=== PATIENT | male | born 1955 | race Caucasian/White ===

== ENCOUNTER 2019-12-04 05:20 | Inpatient (IN) | payer OTHER ==
[~2019-12-04] VITALS: Ht 177.8 cm; Wt 93.0 kg
[2019-12-04] VITALS (7 sets, daily range): BP systolic 121–157; BP diastolic 75–90
[~2019-12-04 05:20] MED LIST: ASPI81TA45 PO; ATOR10TA9 PO; EMPA25TA PO; GLIM4TAB8 PO; LOSA50TA14 PO; METF500T17 PO; METO25TA35 PO; TICA90TA PO
--- NOTE | 2019-12-04 05:34 | NUR ---
EKG DONE IN TRIAGE.
--- NOTE | 2019-12-04 05:41 | NUR ---
Patient presents to ER c/o left side CP x2-3 days; worse today. He describes the pain as pulsating then sharp. Pain radiates up neck and down left arm. +nausea, +dizziness. No vomiting. Patient took Nitro at home with no relief. Patient is in NAD. Respirations even and unlabored.
[2019-12-04] MEDS ORDERED: NITR0.4T28 SL (05:46)
[2019-12-04] MEDS ORDERED: ATOR-2 PO (05:46)
[2019-12-04] MEDS ORDERED: ISOS10TA6 PO (05:46)
[2019-12-04] MEDS ORDERED: ASPIRIN 81 MG TABLET CHEW ONE (05:51)
[2019-12-04] MEDS ORDERED: MORPHINE SULFATE 4 MG/ML, 1ML ONE (05:51)
[2019-12-04] MEDS ORDERED: MORPHINE SULFATE 4 MG/ML, 1ML IVPush PRN (06:00)
[2019-12-04] MEDS ORDERED: SODIUM CHLORIDE FLUSH 10ML SYR IVF ONE (06:00)
[2019-12-04] MEDS ORDERED: ASPIRIN 81 MG TABLET CHEW PO ONE ×2 (06:00→06:30)
[2019-12-04 06:16] LABS: BASOPHILS # (AUTO) 0.04 x10^3/uL (0-0.1); BASOPHILS % (AUTO) 1 % (0-1); EOSINOPHILS # (AUTO) 0.25 x10^3/uL (0-0.4); EOSINOPHILS % (AUTO) 3 % (1-7); LYMPHOCYTES # (AUTO) 2.58 x10^3/uL (1-3.4); LYMPHOCYTES % (AUTO) 34 % (22-44); MD NO; MEAN CORPUSCULAR HEMOGLOBIN 25.4 pg (27.5-34.5); MEAN CORPUSCULAR HGB CONC 32.4 g/dL (33.2-36.2); MEAN CORPUSCULAR VOLUME 78.5 fL (81-97); MEAN PLATELET VOLUME 8.2 fL (7.4-10.4); MONOCYTES # (AUTO) 0.54 x10^3/uL (0.2-0.8); MONOCYTES % (AUTO) 7 % (2-9); NEUTROPHILS # (AUTO) 4.21 x10^3/uL (1.8-6.8); NEUTROPHILS % (AUTO) 55 % (42-75); PLATELET COUNT 223 x10^3/uL (130-400); RED BLOOD COUNT 6.24 x10^6/uL (4.38-5.82); RED CELL DISTRIBUTION WIDTH 13.7 % (9.4-14.8)
[2019-12-04 06:26] LABS: ALANINE AMINOTRANSFERASE 44 U/L (12-78); ALBUMIN 3.9 g/dL (3.4-5.0); ANION GAP 9 mmol/L (5-15); CALCIUM 9.6 mg/dL (8.5-10.1); CHLORIDE 103 mmol/L (98-107); CREATININE 0.94 mg/dL (0.7-1.3)
[2019-12-04 06:30] LABS: ALKALINE PHOSPHATASE 94 U/L (45-117); BILIRUBIN,TOTAL 0.6 mg/dL (0.2-1.0); TOTAL PROTEIN 7.5 g/dL (6.4-8.2); TROPONIN I < 0.015 ng/mL (0.000-0.045)
--- NOTE | 2019-12-04 06:44 | NUR ---
Patient pain decreased to a 2/10 which is tolerable for him.
[2019-12-04] MEDS ORDERED: ONDANSETRON 2MG/ML, 2ML IVPush PRN (07:30)
[2019-12-04] MEDS ORDERED: OXYcodone 5 MG/5 ML ORAL.SOL UDC PO PRN (07:30)
[2019-12-04] MEDS ORDERED: DEXTROSE 50%, 50ML SYRINGE IVPush PRN (07:30)
[2019-12-04] MEDS ORDERED: ACETAMINOPHEN 650 MG/20.3 ML UDC PO PRN (07:30)
[2019-12-04] MEDS ORDERED: ONDANSETRON 4 MG TABLET PO PRN (07:30)
[2019-12-04] MEDS ORDERED: DEXTROSE 4 GM TAB.CHEW PO PRN (07:30)
[2019-12-04] MEDS ORDERED: GLUCAGON 1 MG IM PRN (07:30)
[2019-12-04] MEDS ORDERED: ONDANSETRON ODT 4 MG PO PRN (07:30)
[2019-12-04] MEDS ORDERED: NITROGLYCERIN SINGLE TAB 0.4 MG SL PRN (07:30)
--- NOTE | 2019-12-04 07:40 | NUR ---
Report called to Kendra BAZAN on [employer] Floor ready for pt transport.
[2019-12-04] MEDS: TICAGRELOR 90 MG TABLET PO SCH ×2 (09:47→20:43)
[2019-12-04] MEDS: GLIMEPIRIDE 4 MG TABLET PO SCH (09:47)
[2019-12-04] MEDS: SODIUM CHLORIDE FLUSH 10ML SYR IVF SCH ×2 (09:47→20:45)
[2019-12-04] MEDS: POTASSIUM CHLORIDE 20 MEQ in SODIUM CHLORIDE 0.9% 1,000 ML IV SCH ×2 (09:47→20:43)
[2019-12-04] MEDS: INSULIN LISPRO 100 UNITS/ML, PEN SQ-INSULIN SCH ×3 (11:50→20:44)
[2019-12-04 13:24] LABS: TROPONIN I < 0.015 ng/mL (0.000-0.045)
--- NOTE | 2019-12-04 14:21 | NUR ---
REC: D/C Home when cleared by Addendum: 12/04/19 at 1421 by Josy FERNANDEZ Amended: Links added.
[2019-12-04] MEDS ORDERED: INSULIN LISPRO 100 UNIT/ML, 3ML VIAL SQ-INSULIN ONE (14:30)
[2019-12-04] MEDS: INSULIN GLARGINE 100 UNITS/ML, PEN SQ-INSULIN SCH (15:06)
[2019-12-04] MEDS: METOPROLOL TARTRATE 25 MG TAB PO SCH (17:56)
[2019-12-04 18:43] LABS: TROPONIN I < 0.015 ng/mL (0.000-0.045)
[2019-12-04] MEDS: ATORVASTATIN 80 MG TABLET PO SCH (20:43)
[2019-12-05] MEDS: CETIRIZINE 10 MG TABLET PO PRN ×2 (00:25→21:19)
[2019-12-05 00:26] VITALS: BP 124/81
[2019-12-05 04:06] VITALS: BP 101/65
[2019-12-05 04:44] LABS: CHOL/HDL RATIO 4.3; LDL/HDL RATIO 2.1 (0.5-3.0)
[2019-12-05] MEDS: POTASSIUM CHLORIDE 20 MEQ in SODIUM CHLORIDE 0.9% 1,000 ML IV SCH (05:58)
[2019-12-05] MEDS: METOPROLOL TARTRATE 25 MG TAB PO SCH ×2 (05:58→17:05)
[2019-12-05 07:03] VITALS: BP 114/69
[2019-12-05] MEDS: GLIMEPIRIDE 4 MG TABLET PO SCH (08:42)
[2019-12-05] MEDS: TICAGRELOR 90 MG TABLET PO SCH ×2 (08:42→21:20)
[2019-12-05] MEDS: ASPIRIN 81 MG TABLET CHEW PO/NG SCH (08:42)
[2019-12-05] MEDS: INSULIN GLARGINE 100 UNITS/ML, PEN SQ-INSULIN SCH (08:42)
[2019-12-05] MEDS: INSULIN LISPRO 100 UNITS/ML, PEN SQ-INSULIN SCH ×4 (08:45→21:20)
[2019-12-05] MEDS: SODIUM CHLORIDE FLUSH 10ML SYR IVF SCH ×2 (08:45→21:00)
[2019-12-05] MEDS ORDERED: REGADENOSON 0.4 MG/5 ML SYRINGE ONE (09:04)
[2019-12-05 13:04] VITALS: BP 145/84
[2019-12-05 17:07] VITALS: BP 143/81
[2019-12-05 18:50] VITALS: BP 133/83
[2019-12-05] MEDS: ATORVASTATIN 80 MG TABLET PO SCH (21:20)
[2019-12-06] MEDS: POTASSIUM CHLORIDE 20 MEQ in SODIUM CHLORIDE 0.9% 1,000 ML IV SCH ×3 (00:17→21:25)
[2019-12-06 00:43] VITALS: BP 146/84
[2019-12-06] MEDS: METOPROLOL TARTRATE 25 MG TAB PO SCH ×2 (05:34→17:04)
[2019-12-06 06:11] VITALS: BP 124/78
[2019-12-06] MEDS: INSULIN LISPRO 100 UNITS/ML, PEN SQ-INSULIN SCH ×4 (07:00→20:54)
[2019-12-06] MEDS ORDERED: [UNRECOGNIZED DRUG - REMARK] MC SCH (08:30)
[2019-12-06] MEDS: TICAGRELOR 90 MG TABLET PO SCH ×2 (08:42→20:38)
[2019-12-06] MEDS: GLIMEPIRIDE 4 MG TABLET PO SCH (08:43)
[2019-12-06] MEDS: SODIUM CHLORIDE FLUSH 10ML SYR IVF SCH ×2 (08:43→20:54)
[2019-12-06] MEDS: ASPIRIN 81 MG TABLET CHEW PO/NG SCH (08:43)
[2019-12-06] MEDS: INSULIN GLARGINE 100 UNITS/ML, PEN SQ-INSULIN SCH (08:44)
[2019-12-06] MEDS ORDERED: VERAPAMIL 2.5 MG/ML, 2ML ONE (09:46)
[2019-12-06] MEDS ORDERED: FENTANYL PF 100 MCG/2ML ONE (09:46)
[2019-12-06] MEDS ORDERED: MIDAZOLAM 1 MG/ML, 5ML ONE (09:46)
[2019-12-06] MEDS ORDERED: BIVALIRUDIN 250 MG ONE (09:46)
[2019-12-06] MEDS ORDERED: TICAGRELOR 90 MG TABLET ONE (09:46)
[2019-12-06] MEDS ORDERED: LIDOCAINE-MPF 1%, 5ML ONE (09:47)
[2019-12-06] MEDS ORDERED: HEPARIN 1,000 UNITS/ML, 10ML ONE (09:47)
[2019-12-06] MEDS ORDERED: LIDOCAINE 2%, 20ML ONE (09:53)
[2019-12-06] MEDS ORDERED: SODIUM CHLORIDE 0.9% 1,000 ML IV SCH ×2 (10:57→11:00)
[2019-12-06 12:05] VITALS: BP 108/69
[2019-12-06 19:47] VITALS: BP 146/83
[2019-12-06] MEDS: ATORVASTATIN 80 MG TABLET PO SCH (20:38)
[2019-12-06] MEDS: CETIRIZINE 10 MG TABLET PO PRN (20:38)
[2019-12-07 04:48] LABS: ANION GAP 9 mmol/L (5-15); CALCIUM 8.6 mg/dL (8.5-10.1); CHLORIDE 107 mmol/L (98-107)
[2019-12-07 04:49] LABS: CREATININE 0.89 mg/dL (0.7-1.3)
[2019-12-07 05:19] VITALS: BP 136/86
[2019-12-07] MEDS: METOPROLOL TARTRATE 25 MG TAB PO SCH (05:23)
[2019-12-07] MEDS: POTASSIUM CHLORIDE 20 MEQ in SODIUM CHLORIDE 0.9% 1,000 ML IV SCH (07:12)
[2019-12-07 07:40] VITALS: BP 125/78
[2019-12-07] MEDS: INSULIN LISPRO 100 UNITS/ML, PEN SQ-INSULIN SCH ×2 (08:08→11:44)
[2019-12-07] MEDS: TICAGRELOR 90 MG TABLET PO SCH (08:10)
[2019-12-07] MEDS: ASPIRIN 81 MG TABLET CHEW PO/NG SCH (08:10)
[2019-12-07] MEDS: GLIMEPIRIDE 4 MG TABLET PO SCH (08:10)
[2019-12-07] MEDS: SODIUM CHLORIDE FLUSH 10ML SYR IVF SCH (08:11)
[2019-12-07] MEDS ORDERED: INSULIN GLARGINE 100 UNITS/ML, PEN SQ-INSULIN SCH (09:00)
[2019-12-07] MEDS ORDERED: ASPI-515 PO/NG (10:44)
[2019-12-07 12:15] VITALS: BP 138/81
== END 2019-12-07 12:30 | disposition home or self-care (01) | DRG 247 ==
LOC: ED 06:15 → EDIP 06:54 → SUATTDRO 06:54 → 4WST 08:29 → 5SO 12-06 11:12
PROVIDERS: ADMIT Hospitalist; ATTEND Internal Medicine
PROC: 027034Z Dilation of Coronary Artery, One Artery with Drug-eluting Intraluminal Device, Percutaneous Approach (ICD-10-PCS; principal; 2019-12-06)
DX: T82.855A Stenosis of coronary artery stent, initial encounter (principal); G45.9 Transient cerebral ischemic attack, unspecified; E11.9 Type 2 diabetes mellitus without complications; I10 Essential (primary) hypertension; I25.10 Atherosclerotic heart disease of native coronary artery without angina pectoris; E78.5 Hyperlipidemia, unspecified; R47.1 Dysarthria and anarthria; Y83.1 Surgical operation with implant of artificial internal device as the cause of abnormal reaction of the patient, or of later complication, without mention of misadventure at the time of the procedure; Z86.73 Personal history of transient ischemic attack (TIA), and cerebral infarction without residual deficits; Z83.3 Family history of diabetes mellitus; Y92.89 Other specified places as the place of occurrence of the external cause; Z20.828 Contact with and (suspected) exposure to other viral communicable diseases
CPT/HCPCS: 36415; 93017; 93454; 96372; 96374; 99285; C9600; J3490; 70450; 70551; 71045; 78452; 80048; 80053; 80061; 82728; 82947; 82962; 83036; 83540; 83550; 83880; 84466; 84484; 85025; 93005; 93306; 93880; 99156; 99157; C1760; C1769; C1894; G0378; J0583; J1644; J2250; J2785; J3010; J3480; 92522-GN; A9502; C1725; C1874; C1887; C9898; J1815; J2270; J7030; Q9967